=== PATIENT | female | born 1985 | race Caucasian/White ===

== ENCOUNTER 2021-04-05 13:13 | Emergency (ER) | payer BC ==
[~2021-04-05] VITALS: Ht 167.6 cm; Wt 59.5 kg
[2021-04-05] MEDS ORDERED: ZYRTEC10 M3 PO (13:45)
[2021-04-05] MEDS ORDERED: VITAMIN D310 MC2 PO (13:45)
[2021-04-05 13:46] LABS: BASO # 0.05 K/mm3 (0.02-0.10); EOS # 0.05 K/mm3 (0.04-0.40); EOS % 0.4 % (1.0-5.0); HEMATOCRIT 41.3 % (37.0-47.0); HEMOGLOBIN 13.7 g/dL (12.5-16.0); LYMPH# 1.76 K/mm3 (1.50-4.00); MEAN CELL VOLUME 98 fl (78-100); MEAN CORPUSCULAR HEMOGLOBIN 33 pg (27-31); MEAN CORPUSCULAR HGB CONC 33 g/dL (33-37); MEAN PLATELET VOLUME 9.3 fl (7.4-10.4); NEU # 10.17 K/mm3 (1.40-6.50); PLATELET COUNT 304 K/mm3 (130-400); RED CELL DISTRIBUTION WIDTH 11.5 % (11.5-14.5); WHITE BLOOD COUNT 12.8 K/mm3 (4.8-10.8)
[2021-04-05 13:53] LABS: URINE APPEARANCE HAZY; URINE BILIRUBIN NEGATIVE (NEGATIVE); URINE BLOOD 250 ery/uL (NEGATIVE); URINE COLOR YELLOW; URINE GLUCOSE NEGATIVE (NEGATIVE); URINE KETONE NEGATIVE (NEGATIVE); URINE NITRATE POSITIVE (NEGATIVE); URINE PROTEIN(semi-quant) 1+ (NEGATIVE); URINE UROBILINOGEN NORMAL (NORMAL)
[2021-04-05 13:54] LABS: URINE LEUKOCYTE ESTERASE 1+ (NEGATIVE); URINE MUCUS PRESENT (NOT PRESENT); URINE WBC >50 /hpf (0-3)
[2021-04-05 13:59] LABS: ALBUMIN 4.1 g/dL (3.5-5.0); POTASSIUM 3.9 mmol/L (3.5-5.1)
[2021-04-05 14:00] LABS: CALCIUM 9.3 mg/dL (8.3-10.5)
[2021-04-05 14:01] LABS: TOTAL PROTEIN 6.7 g/dL (6.4-8.3)
[2021-04-05 14:03] LABS: TOTAL BILIRUBIN 0.3 mg/dL (0.2-1.2)
[2021-04-05] MEDS ORDERED: PYRIDIUM200 M2 PO (15:19)
[2021-04-05] MEDS ORDERED: CIPRO 500MG TA500 MG PO (15:19)
[2021-04-05] MEDS ORDERED: NORCO 325 MG-51 TA1 PO (15:19)
[2021-04-05 15:27] VITALS: BP 124/76
== END 2021-04-05 15:28 | disposition home or self-care (01) ==
LOC: ED 13:13
PROVIDERS: Physician Assistant
DX: N39.0 Urinary tract infection, site not specified (principal); Z90.49 Acquired absence of other specified parts of digestive tract; Z88.1 Allergy status to other antibiotic agents
CPT/HCPCS: J0696; J1885; Q9967

== ENCOUNTER → 2021-07-14 | Outpatient (CLI) | payer BC ==
[~2021-07-14] MED LIST: CIPRO 500MG TA500 MG PO; NORCO 325 MG-51 TA1 PO; PYRIDIUM200 M2 PO; VITAMIN D310 MC2 PO; ZYRTEC10 M3 PO
--- NOTE | 2021-07-16 09:41 | NUR ---
RETURNED HOLTER MONITOR. PAPERWORK AND MONITOR PLACED IN ENVELOPE TO GO TO CARD/PULM FOR READING.
== END ==
LOC: AMSURD 08:31
DX: R00.1 Bradycardia, unspecified (principal); R00.0 Tachycardia, unspecified

== ENCOUNTER → 2022-05-11 | Outpatient (CLI) | payer BC ==
[~2022-05-11] MED LIST changes: +CORLANOR7.5 MG PO; +JUNEL 1/20 20 M1 TAB PO; +VENLAFAXINE HY150 MG PO
[2022-05-12 13:06] LABS: ANA SCREEN with REFLEX Negative (Negative)
== END ==
LOC: LAB 11:55
PROVIDERS: Family Medicine
DX: M25.50 Pain in unspecified joint (principal); R21 Rash and other nonspecific skin eruption